=== PATIENT | female | born 1945 ===

== ENCOUNTER → 2018-04-12 | Outpatient (CLI) | payer MEDICARE ==
[~2018-04-12] VITALS: Ht 162.6 cm; Wt 82.0 kg
[~2018-04-12] MED LIST: ALLO300 PO; ASPI81 PO; ATOR40TA28 PO; CHL25 PO; MAGN250T2 PO; NEBI5 PO; PROG100C6 PO; THYR30 PO
[2018-04-12 12:05] VITALS: BP 161/71
== END | disposition home or self-care (01) ==
LOC: SRCNTR 11:38
PROVIDERS: ATTEND Internal Medicine Cardiovascular Disease
DX: I11.9 Hypertensive heart disease without heart failure (principal); E78.5 Hyperlipidemia, unspecified; M10.9 Gout, unspecified; E66.9 Obesity, unspecified; R73.02 Impaired glucose tolerance (oral)
CPT/HCPCS: G0463